=== PATIENT | male | born 1975 | race Two or more races ===

== ENCOUNTER 2016-07-29 18:14 | Emergency (ER) | payer OTHER ==
[~2016-07-29 18:14] MED LIST: ANTIVERT25 MG PO
[2016-07-29] MEDS ORDERED: FLONASE ALLERG9.9 ML (18:36)
== END 2016-07-29 18:55 ==
LOC: EDMED 18:14
PROC: 0HQGXZZ Repair Left Hand Skin, External Approach (ICD-10-PCS; principal; 2016-07-29)
DX: S61.412A Laceration without foreign body of left hand, initial encounter (principal); W27.8XXA Contact with other nonpowered hand tool, initial encounter; Y92.009 Unspecified place in unspecified non-institutional (private) residence as the place of occurrence of the external cause